=== PATIENT | male | born 1970 | race Hispanic/Latino ===

== ENCOUNTER 2016-12-30 10:55 | Emergency (ER) | payer OTHER ==
[~2016-12-30] VITALS: Ht 167.6 cm; Wt 69.6 kg
[~2016-12-30 10:55] MED LIST: CANNABIS OIL; NAPROSYN500 MG PO; PERI-COLACE TA1 EACH PO; SHARK FIN CART500 MG PO; TRANSFER FACTOR PO; VITAMIN D5000 UNI1 PO
[2016-12-30 14:59] VITALS: BP 135/68
== END 2016-12-30 15:03 | disposition home or self-care (01) ==
LOC: EME 10:55
DX: R07.89 Other chest pain (principal); R10.11 Right upper quadrant pain; V47.5XXA Car driver injured in collision with fixed or stationary object in traffic accident, initial encounter; Y92.411 Interstate highway as the place of occurrence of the external cause
CPT/HCPCS: 71101; 99281; 99284

== ENCOUNTER 2017-07-02 00:30 | Inpatient (IN) | payer OTHER ==
[~2017-07-02] VITALS: Ht 170.2 cm; Wt 64.7 kg
[2017-07-02 01:43] LABS: EOSINOPHIL (%) 1.9 % (0-5); EOSINOPHIL COUNT 0.1 K/uL (0-0.3); IMMATURE GRANULOCYTE (%) 0.1 % (0.0-0.7); INSTRUMENT ABS NEUTROPHIL CT 4.7 K/uL; MCH 28.6 PG (29.0-34.0); MCHC 32.4 G/DL (30.0-36.0); MCV 88.4 FL (86-99); MEAN PLAT.VOLUME 11.9 uM^3 (9.0-12.4); MONOCYTE (%) 5.1 % (3-12); MONOCYTE COUNT 0.4 K/uL (0-0.8); NEUTROPHIL (%) 65.4 % (45-76); NEUTROPHIL COUNT 4.7 K/uL (1.8-6.4); PLATELET COUNT 253 K/uL (156-360); RBC DIS.WIDTH-CV 12.3 % (11.8-14.6); RBC DIS.WIDTH-SD 40.1 % (39-53); RED BLOOD COUNT 4.75 M/uL (4.00-5.50); WHITE BLOOD COUNT 7.2 K/uL (4.1-10.2)
[2017-07-02 01:51] LABS: CHLORIDE 102 mEq/L (99-109); SODIUM 138 mEq/L (136-147)
[2017-07-02 01:53] LABS: GLUCOSE 110 mg/dL (70-99)
[2017-07-02 01:54] LABS: ANION GAP 11 MEQ/L (2-14)
[2017-07-02 01:55] LABS: TOTAL BILIRUBIN 0.3 mg/dL (0.0-1.0)
[2017-07-02 01:57] LABS: ALKALINE PHOSPHATASE 71 IU/L (3-129); GFR ESTIMATE (CALCULATED) > 59 mL/min/
[2017-07-02 01:58] LABS: UREA NITROGEN (BUN) 11 mg/dL (9-23)
[2017-07-02 02:01] LABS: POTASSIUM 3.7 mEq/L (3.7-5.4)
[2017-07-02 04:18] VITALS: BP 131/77
[2017-07-02 05:55] LABS: POINT-OF-CARE METER ID UU13113725
[2017-07-02 07:25] VITALS: BP 125/78
[2017-07-02 10:08] VITALS: BP 133/75
[2017-07-02] MEDS ORDERED: CANABIS OIL SL (13:49)
[2017-07-02] MEDS ORDERED: B-COMPLEX-VITA1 EACH PO (13:50)
[2017-07-02] MEDS ORDERED: TRANSFER FACTOR (13:50)
[2017-07-02 14:07] LABS: TROP-I INTERPRETATION NEGATIVE; TROPONIN-I < 0.01 ng/mL (0.0-0.30)
[2017-07-02 17:35] VITALS: BP 138/72
[2017-07-02 18:29] LABS: POINT-OF-CARE METER ID UU13113774
[2017-07-02 21:40] LABS: HEMATOCRIT 36.8 % (38.0-50.0); MCV 89.8 FL (86-99)
[2017-07-02 22:55] VITALS: BP 131/63
[2017-07-03 00:51] LABS: POINT-OF-CARE METER ID UU13113774
[2017-07-03 02:16] LABS: POINT-OF-CARE METER ID UU13113774
[2017-07-03 05:48] LABS: POINT-OF-CARE METER ID UU13113774
[2017-07-03 06:46] LABS: HEMATOCRIT 35.1 % (38.0-50.0); MCHC 31.9 G/DL (30.0-36.0); MCV 90.9 FL (86-99); MEAN PLAT.VOLUME 12.3 uM^3 (9.0-12.4); PLATELET COUNT 217 K/uL (156-360); RBC DIS.WIDTH-CV 12.4 % (11.8-14.6); RBC DIS.WIDTH-SD 41.3 % (39-53); RED BLOOD COUNT 3.86 M/uL (4.00-5.50); WHITE BLOOD COUNT 6.1 K/uL (4.1-10.2)
[2017-07-03 07:19] VITALS: BP 119/69
[2017-07-03 07:43] LABS: ALKALINE PHOSPHATASE 56 IU/L (3-129); ANION GAP 8 MEQ/L (2-14); CHLORIDE 101 MEQ/L (99-109); GFR ESTIMATE (CALCULATED) > 59 mL/min/; SAMPLE HEMOLYSIS CHECK 0; SAMPLE ICTERIC CHECK 0; SAMPLE LIPEMIA CHECK 0; SODIUM 139 MEQ/L (136-147); TOTAL BILIRUBIN 0.7 MG/DL (0.0-1.0); UREA NITROGEN (BUN) 10 mg/dL (9-23)
[2017-07-03 07:47] LABS: GLUCOSE 74 mg/dL (70-99)
[2017-07-03 07:52] LABS: POINT-OF-CARE METER ID UU13113774
[2017-07-03 10:03] LABS: MAGNESIUM 2.1 mg/dl (1.3-2.7)
[2017-07-03 10:58] VITALS: BP 122/71
[2017-07-03 12:17] LABS: POINT-OF-CARE METER ID UU13113774
[2017-07-03 16:19] VITALS: BP 112/62
[2017-07-03 19:37] LABS: POINT-OF-CARE METER ID UU13113725
[2017-07-03 23:15] VITALS: BP 109/60
[2017-07-04 05:45] LABS: POINT-OF-CARE METER ID UU13113774
[2017-07-04 06:40] VITALS: BP 105/70
[2017-07-04 06:50] LABS: HEMATOCRIT 34.6 % (38.0-50.0); MCH 29.2 PG (29.0-34.0); MCHC 32.4 G/DL (30.0-36.0); MCV 90.1 FL (86-99); PLATELET COUNT 214 K/uL (156-360); RBC DIS.WIDTH-CV 12.3 % (11.8-14.6); RBC DIS.WIDTH-SD 40.5 % (39-53); RED BLOOD COUNT 3.84 M/uL (4.00-5.50); WHITE BLOOD COUNT 4.3 K/uL (4.1-10.2)
[2017-07-04 07:17] LABS: ANION GAP 6 MEQ/L (2-14); CHLORIDE 102 MEQ/L (99-109); GFR ESTIMATE (CALCULATED) > 59 mL/min/; MAGNESIUM 2.1 mg/dl (1.3-2.7); POTASSIUM 3.7 MEQ/L (3.7-5.4); SAMPLE HEMOLYSIS CHECK 0; SAMPLE ICTERIC CHECK 0; SAMPLE LIPEMIA CHECK 0; SODIUM 139 MEQ/L (136-147); UREA NITROGEN (BUN) 6 mg/dL (9-23)
[2017-07-04 07:18] LABS: GLUCOSE 116 mg/dL (70-99)
[2017-07-04 11:08] VITALS: BP 108/71
[2017-07-04 11:24] LABS: POINT-OF-CARE METER ID UU13113725
[2017-07-04 15:15] VITALS: BP 103/69
[2017-07-04 16:29] LABS: POINT-OF-CARE METER ID UU13113725
[2017-07-04 19:56] VITALS: BP 130/65
[2017-07-04 21:46] LABS: POINT-OF-CARE METER ID UU13113725
[2017-07-04 22:57] VITALS: BP 125/62
[2017-07-05 05:58] LABS: POINT-OF-CARE METER ID UU13113774
[2017-07-05 07:30] VITALS: BP 105/67
[2017-07-05] MEDS ORDERED: ZOFRAN4 MG PO (11:01)
[2017-07-05 11:54] LABS: POINT-OF-CARE METER ID UU13113725
== END 2017-07-05 12:22 | disposition home or self-care (01) | DRG 389 ==
LOC: EME 00:30 → 5EAST 03:03 → EDOF 03:03 → ENRESERV 03:05 → 5EAST 04:21
PROVIDERS: Emergency Medicine; Hospitalist; Internal Medicine; Physician Assistant Medical
DX: K56.690 Other partial intestinal obstruction (principal); C78.6 Secondary malignant neoplasm of retroperitoneum and peritoneum; C77.2 Secondary and unspecified malignant neoplasm of intra-abdominal lymph nodes; C78.01 Secondary malignant neoplasm of right lung; G89.3 Neoplasm related pain (acute) (chronic); E86.0 Dehydration; Z85.038 Personal history of other malignant neoplasm of large intestine; Z90.49 Acquired absence of other specified parts of digestive tract
CPT/HCPCS: 36415; 71010; 74020; 74176; 80048; 80053; 82948; 83735; 84100; 84484; 85014; 85018; 85025; 85027; 86301 90; 86850; 86900; 86901; 93005; 99281; 99285; C9113; J1170; J1644; J1815; J2270; S0028

== ENCOUNTER 2017-07-22 20:59 | Emergency (ER) | payer OTHER ==
[~2017-07-22] VITALS: Ht 170.2 cm; Wt 63.9 kg
[~2017-07-22 20:59] MED LIST changes: +B-COMPLEX-VITA1 EACH PO; +CANABIS OIL SL; +TRANSFER FACTOR; +ZOFRAN4 MG PO
[2017-07-22 21:24] LABS: HEMATOCRIT 39.3 % (38.0-50.0); MCH 28.3 PG (29.0-34.0); MCHC 32.8 G/DL (30.0-36.0); MCV 86.2 FL (86-99); RBC DIS.WIDTH-CV 12.2 % (11.8-14.6); RBC DIS.WIDTH-SD 38.5 % (39-53); RED BLOOD COUNT 4.56 M/uL (4.00-5.50); WHITE BLOOD COUNT 7.9 K/uL (4.1-10.2)
[2017-07-22 21:32] LABS: CHLORIDE 99 mEq/L (99-109); POTASSIUM 4.3 mEq/L (3.7-5.4); SODIUM 140 mEq/L (136-147)
[2017-07-22 21:34] LABS: GLUCOSE 110 mg/dL (70-99)
[2017-07-22 21:35] LABS: ANION GAP 13 MEQ/L (2-14)
[2017-07-22 21:36] LABS: TOTAL BILIRUBIN 0.3 mg/dL (0.0-1.0)
[2017-07-22 21:37] LABS: ALKALINE PHOSPHATASE 67 IU/L (3-129)
[2017-07-22 21:38] LABS: GFR ESTIMATE (CALCULATED) > 59 mL/min/
[2017-07-22 21:39] LABS: UREA NITROGEN (BUN) 9 mg/dL (9-23)
[2017-07-22 21:41] LABS: LIPASE 12 U/L (1.0-51.0)
[2017-07-22 22:45] LABS: MEAN PLAT.VOLUME 12.2 uM^3 (9.0-12.4); PLAT.SUFFICIENCY ADEQUATE; PLATELET COUNT 255 K/uL (156-360)
[2017-07-22 23:06] LABS: ADD MIUA? NO; BILIRUBIN NEGATIVE; BLOOD NEGATIVE; COLOR STRAW ((YELLOW)); GLUCOSE (STRIP) NEGATIVE; KETONES 20; LEUKOCYTES NEGATIVE; NITRITE NEGATIVE; PROTEIN (STRIP) NEGATIVE; UCUL ADDED? NO; UROBILINOGEN 0.2 MG/DL (0.2-1.0)
[2017-07-23] MEDS ORDERED: ZOFRAN4 MG PO (01:14)
[2017-07-23] MEDS ORDERED: ROXICODONE5 MG PO (01:14)
[2017-07-23 01:42] VITALS: BP 109/71
[2017-07-23] MEDS ORDERED: [UNRECOGNIZED DRUG - OTHER] PO (23:36)
[2017-07-23] MEDS ORDERED: [UNRECOGNIZED DRUG - OTHER] PO (23:38)
[2017-07-23] MEDS ORDERED: VITAMIN D2000 UNI1 PO (23:39)
[2017-07-23] MEDS ORDERED: ENZYME DIGEST1 EACH PO (23:40)
[2017-07-27] MEDS ORDERED: POLYETHYLENE GL17 GM PO (12:26)
[2017-07-27] MEDS ORDERED: SENNA PLUS TAB1 EACH PO (12:26)
== END 2017-07-23 01:48 | disposition home or self-care (01) ==
LOC: EME 20:59
DX: N13.30 Unspecified hydronephrosis (principal); R10.9 Unspecified abdominal pain; Z51.5 Encounter for palliative care; C18.1 Malignant neoplasm of appendix; C77.2 Secondary and unspecified malignant neoplasm of intra-abdominal lymph nodes
CPT/HCPCS: 74176; 80053; 81003; 83690; 85027; 99281; 99285; J1170; J2405; J7050

== ENCOUNTER 2017-08-12 20:46 | Inpatient (IN) | payer OTHER ==
[~2017-08-12] VITALS: Ht 170.2 cm; Wt 61.8 kg
[~2017-08-12 20:46] MED LIST changes: +ENZYME DIGEST1 EACH PO; +POLYETHYLENE GL17 GM PO; +ROXICODONE5 MG PO; +SENNA PLUS TAB1 EACH PO; +VITAMIN D2000 UNI1 PO; +[UNRECOGNIZED DRUG - OTHER] PO; +[UNRECOGNIZED DRUG - OTHER] PO
[2017-08-12 21:47] LABS: HEMATOCRIT 40.2 % (38.0-50.0); MCH 27.2 PG (29.0-34.0); MCHC 32.6 G/DL (30.0-36.0); MCV 83.6 FL (86-99); RBC DIS.WIDTH-CV 12.8 % (11.8-14.6); RBC DIS.WIDTH-SD 39.6 % (39-53); WHITE BLOOD COUNT 6.7 K/uL (4.1-10.2)
[2017-08-12 21:49] LABS: CHLORIDE 98 mEq/L (99-109); POTASSIUM 4.4 mEq/L (3.7-5.4); SODIUM 140 mEq/L (136-147)
[2017-08-12 21:51] LABS: GLUCOSE 122 mg/dL (70-99)
[2017-08-12 21:52] LABS: ANION GAP 12 MEQ/L (2-14)
[2017-08-12 21:53] LABS: TOTAL BILIRUBIN 0.5 mg/dL (0.0-1.0)
[2017-08-12 21:55] LABS: ALKALINE PHOSPHATASE 64 IU/L (3-129); GFR ESTIMATE (CALCULATED) > 59 mL/min/
[2017-08-12 21:56] LABS: UREA NITROGEN (BUN) 7 mg/dL (9-23)
[2017-08-12 21:58] LABS: LIPASE 23 U/L (1.0-51.0)
[2017-08-12 22:19] LABS: MEAN PLAT.VOLUME 11.9 uM^3 (9.0-12.4); PLAT.SUFFICIENCY ADEQUATE; PLATELET COUNT 337 K/uL (156-360)
[2017-08-12 22:23] LABS: RED BLOOD COUNT 4.81 M/uL (4.00-5.50)
[2017-08-12 22:44] LABS: ADD MIUA? YES; BILIRUBIN NEGATIVE; BLOOD MODERATE; COLOR STRAW ((YELLOW)); GLUCOSE (STRIP) NEGATIVE; KETONES 20; LEUKOCYTES TRACE; NITRITE NEGATIVE; PROTEIN (STRIP) NEGATIVE; SPECIFIC GRAVITY 1.005 (1.000-1.030); UROBILINOGEN 0.2 MG/DL (0.2-1.0)
[2017-08-12 22:55] LABS: BACTERIA NONE SEEN /HPF; EPITHELIAL CELLS NONE SEEN /HPF; MUCUS TRACE /LPF; RED BLOOD CELLS 0-5 /HPF (0-5); WHITE BLOOD CELLS 0-5 /HPF (0-5)
[2017-08-12] MEDS ORDERED: PRILOSEC OTC20 MG PO (23:07)
[2017-08-13] VITALS (7 sets, daily range): BP systolic 119–134; BP diastolic 68–80
[2017-08-13 06:49] LABS: HEMATOCRIT 34.8 % (38.0-50.0); MCH 26.4 PG (29.0-34.0); MCHC 31.3 G/DL (30.0-36.0); MCV 84.3 FL (86-99); RBC DIS.WIDTH-SD 39.9 % (39-53); RED BLOOD COUNT 4.13 M/uL (4.00-5.50); WHITE BLOOD COUNT 4.7 K/uL (4.1-10.2)
[2017-08-13 07:09] LABS: ALKALINE PHOSPHATASE 49 IU/L (3-129); ANION GAP 10 MEQ/L (2-14); CHLORIDE 102 MEQ/L (99-109); GFR ESTIMATE (CALCULATED) > 59 mL/min/; GLUCOSE 104 mg/dL (70-99); POTASSIUM 4.4 MEQ/L (3.7-5.4); SAMPLE HEMOLYSIS CHECK 0; SAMPLE ICTERIC CHECK 0; SAMPLE LIPEMIA CHECK 0; SODIUM 138 MEQ/L (136-147); TOTAL BILIRUBIN 0.4 MG/DL (0.0-1.0); UREA NITROGEN (BUN) 7 mg/dL (9-23)
[2017-08-13 07:48] LABS: MEAN PLAT.VOLUME 11.6 uM^3 (9.0-12.4); PLAT.SUFFICIENCY ADEQUATE; PLATELET COUNT 271 K/uL (156-360)
[2017-08-14 04:07] VITALS: BP 112/62
[2017-08-14 09:15] VITALS: BP 123/68
[2017-08-14] MEDS ORDERED: TAMSULOSIN HCL0.4 MG PO (13:42)
[2017-08-14] MEDS ORDERED: MOTRIN600 MG PO (13:43)
[2017-08-14] MEDS ORDERED: SENNA PLUS TAB1 EACH PO (13:43)
== END 2017-08-14 15:35 | disposition home or self-care (01) | DRG 389 ==
LOC: EME 20:46 → EDOF 08-13 00:01 → 2EAST 08-13 00:01 → ENRESERV 08-13 00:05 → 2EAST 08-13 01:30
PROVIDERS: Internal Medicine; Nurse Practitioner Family
DX: K56.600 Partial intestinal obstruction, unspecified as to cause (principal); C78.6 Secondary malignant neoplasm of retroperitoneum and peritoneum; C79.11 Secondary malignant neoplasm of bladder; C77.2 Secondary and unspecified malignant neoplasm of intra-abdominal lymph nodes; N13.1 Hydronephrosis with ureteral stricture, not elsewhere classified; G89.3 Neoplasm related pain (acute) (chronic); T83.84XA Pain due to genitourinary prosthetic devices, implants and grafts, initial encounter; Y73.2 Prosthetic and other implants, materials and accessory gastroenterology and urology devices associated with adverse incidents; K25.9 Gastric ulcer, unspecified as acute or chronic, without hemorrhage or perforation; B96.81 Helicobacter pylori [H. pylori] as the cause of diseases classified elsewhere; K21.9 Gastro-esophageal reflux disease without esophagitis; Z85.038 Personal history of other malignant neoplasm of large intestine; Z90.49 Acquired absence of other specified parts of digestive tract
CPT/HCPCS: 74000; 74176; 80053; 81003; 83690; 85027; 99281; 99285; J1170; J1644; J1650; J1885; J2405; J3010; J7030; S0028

== ENCOUNTER → 2017-08-23 | Emergency (ER) | payer OTHER ==
[~2017-08-23] VITALS: Ht 170.2 cm; Wt 58.6 kg
[~2017-08-23] MED LIST changes: +CASTOR OIL PO; +COLACE100 MG PO; +MOTRIN600 MG PO; +PRILOSEC OTC20 MG PO; +TAMSULOSIN HCL0.4 MG PO
[2017-08-23 14:13] LABS: HEMATOCRIT 42.3 % (38.0-50.0); MCH 26.1 PG (29.0-34.0); MCHC 32.4 G/DL (30.0-36.0); MCV 80.7 FL (86-99); RBC DIS.WIDTH-CV 13.2 % (11.8-14.6); RBC DIS.WIDTH-SD 38.4 % (39-53); WHITE BLOOD COUNT 9.4 K/uL (4.1-10.2)
[2017-08-23 14:23] LABS: CHLORIDE 92 mEq/L (99-109); POTASSIUM 3.6 mEq/L (3.7-5.4); SODIUM 136 mEq/L (136-147)
[2017-08-23 14:25] LABS: GLUCOSE 110 mg/dL (70-99)
[2017-08-23 14:26] LABS: ANION GAP 15 MEQ/L (2-14)
[2017-08-23 14:27] LABS: TOTAL BILIRUBIN 0.6 mg/dL (0.0-1.0)
[2017-08-23 14:28] LABS: ALKALINE PHOSPHATASE 72 IU/L (3-129)
[2017-08-23 14:29] LABS: GFR ESTIMATE (CALCULATED) > 59 mL/min/
[2017-08-23 14:30] LABS: UREA NITROGEN (BUN) 10 mg/dL (9-23)
[2017-08-23 14:32] LABS: LIPASE 18 U/L (1.0-51.0)
[2017-08-23 14:47] LABS: RED BLOOD COUNT 5.24 M/uL (4.00-5.50)
[2017-08-23 15:06] LABS: MEAN PLAT.VOLUME 11.7 uM^3 (9.0-12.4); PLAT.SUFFICIENCY ADEQUATE; PLATELET COUNT 337 K/uL (156-360)
[2017-08-23 17:12] LABS: ADD MIUA? YES; BILIRUBIN NEGATIVE; BLOOD MODERATE; COLOR YELLOW ((YELLOW)); GLUCOSE (STRIP) NEGATIVE; KETONES 80; LEUKOCYTES TRACE; NITRITE NEGATIVE; PROTEIN (STRIP) 30; UROBILINOGEN 0.2 MG/DL (0.2-1.0)
[2017-08-23 17:19] LABS: BACTERIA NONE SEEN /HPF; EPITHELIAL CELLS RARE /HPF; HYALINE CASTS 0-5 /LPF; MUCUS 1+ /LPF; RED BLOOD CELLS 30-40 /HPF (0-5); UCUL ADDED? YES; WHITE BLOOD CELLS CLUMP RARE /HPF (0-5)
[2017-08-23 20:04] VITALS: BP 126/79
== END | disposition home or self-care (01) ==
LOC: EME 13:25
DX: R10.9 Unspecified abdominal pain (principal); R11.2 Nausea with vomiting, unspecified; R53.1 Weakness; E86.0 Dehydration; C76.2 Malignant neoplasm of abdomen
CPT/HCPCS: 80053; 81003; 83690; 85027; 87086; 99281; 99284; J2405; J3010; J7030

== ENCOUNTER 2017-08-24 13:34 | Emergency (ER) | payer OTHER ==
[~2017-08-24] VITALS: Ht 170.2 cm; Wt 58.5 kg
[~2017-08-24 13:34] MED LIST changes: -CASTOR OIL PO; -COLACE100 MG PO
[2017-08-24 14:42] LABS: HEMATOCRIT 36.6 % (38.0-50.0); MCH 26.2 PG (29.0-34.0); MCHC 32.2 G/DL (30.0-36.0); MCV 81.3 FL (86-99); RBC DIS.WIDTH-CV 13.2 % (11.8-14.6); RBC DIS.WIDTH-SD 39.1 % (39-53)
[2017-08-24 14:50] LABS: CHLORIDE 93 mEq/L (99-109); SODIUM 134 mEq/L (136-147)
[2017-08-24 14:53] LABS: GLUCOSE 105 mg/dL (70-99)
[2017-08-24 14:54] LABS: ANION GAP 12 MEQ/L (2-14)
[2017-08-24 14:55] LABS: TOTAL BILIRUBIN 0.6 mg/dL (0.0-1.0)
[2017-08-24 14:56] LABS: ALKALINE PHOSPHATASE 63 IU/L (3-129); GFR ESTIMATE (CALCULATED) > 59 mL/min/
[2017-08-24 14:57] LABS: UREA NITROGEN (BUN) 10 mg/dL (9-23)
[2017-08-24 15:00] LABS: LIPASE 7 U/L (1.0-51.0)
[2017-08-24 15:39] LABS: MEAN PLAT.VOLUME 11.7 uM^3 (9.0-12.4); PLAT.SUFFICIENCY ADEQUATE; PLATELET COUNT 289 K/uL (156-360)
[2017-08-24 17:15] LABS: ADD MIUA? YES; BILIRUBIN NEGATIVE; BLOOD MODERATE; COLOR YELLOW ((YELLOW)); GLUCOSE (STRIP) NEGATIVE; KETONES 80; LEUKOCYTES NEGATIVE; NITRITE NEGATIVE; PROTEIN (STRIP) 100; SPECIFIC GRAVITY 1.016 (1.000-1.030); UROBILINOGEN 0.2 MG/DL (0.2-1.0)
[2017-08-24 17:22] LABS: BACTERIA RARE /HPF; EPITHELIAL CELLS NONE SEEN /HPF; HYALINE CASTS 0-5 /LPF; MUCUS 1+ /LPF; RED BLOOD CELLS TNTC /HPF (0-5); UCUL ADDED? YES; WHITE BLOOD CELLS 0-5 /HPF (0-5)
[2017-08-25 00:08] VITALS: BP 116/81
== END 2017-08-25 00:09 | disposition short-term general hospital (02) ==
LOC: EME → EDBD 13:34 → EME 08-25 00:09
PROVIDERS: Emergency Medicine
DX: K56.600 Partial intestinal obstruction, unspecified as to cause (principal); R11.2 Nausea with vomiting, unspecified; C79.11 Secondary malignant neoplasm of bladder; G89.3 Neoplasm related pain (acute) (chronic); Z85.038 Personal history of other malignant neoplasm of large intestine; K21.9 Gastro-esophageal reflux disease without esophagitis; Z92.21 Personal history of antineoplastic chemotherapy; Z90.49 Acquired absence of other specified parts of digestive tract
CPT/HCPCS: 74177; 80053; 81003; 83690; 85027; 87086; 99281; 99285; J2405; J3010; J7030

== ENCOUNTER 2017-08-29 18:33 | Inpatient (IN) | payer OTHER ==
[~2017-08-29] VITALS: Ht 170.2 cm; Wt 56.6 kg
[2017-08-29 19:12] LABS: EOSINOPHIL (%) 0.5 % (0-5); HEMATOCRIT 39.6 % (38.0-50.0); IMMATURE GRANULOCYTE (%) 0.5 % (0.0-0.7); INSTRUMENT ABS NEUTROPHIL CT 6.4 K/uL; LYMPHOCYTE COUNT 1.2 K/uL (1.0-2.8); MCH 25.2 PG (29.0-34.0); MCHC 31.6 G/DL (30.0-36.0); MCV 79.8 FL (86-99); MEAN PLAT.VOLUME 11.8 uM^3 (9.0-12.4); MONOCYTE (%) 5.3 % (3-12); MONOCYTE COUNT 0.4 K/uL (0-0.8); NEUTROPHIL COUNT 6.4 K/uL (1.8-6.4); PLATELET COUNT 356 K/uL (156-360); RBC DIS.WIDTH-CV 13.2 % (11.8-14.6); RBC DIS.WIDTH-SD 37.3 % (39-53); RED BLOOD COUNT 4.96 M/uL (4.00-5.50); WHITE BLOOD COUNT 8.1 K/uL (4.1-10.2)
[2017-08-29 19:24] LABS: CHLORIDE 97 mEq/L (99-109); POTASSIUM 3.2 mEq/L (3.7-5.4); SODIUM 138 mEq/L (136-147)
[2017-08-29 19:26] LABS: GLUCOSE 120 mg/dL (70-99)
[2017-08-29 19:27] LABS: ANION GAP 14 MEQ/L (2-14)
[2017-08-29 19:28] LABS: TOTAL BILIRUBIN 0.5 mg/dL (0.0-1.0)
[2017-08-29 19:29] LABS: ALKALINE PHOSPHATASE 69 IU/L (3-129)
[2017-08-29 19:30] LABS: GFR ESTIMATE (CALCULATED) > 59 mL/min/
[2017-08-29 19:31] LABS: UREA NITROGEN (BUN) 10 mg/dL (9-23)
[2017-08-29 19:33] LABS: LIPASE 58 U/L (1.0-51.0)
[2017-08-29] MEDS ORDERED: COLACE100 MG PO (21:53)
[2017-08-29] MEDS ORDERED: CASTOR OIL PO (21:54)
[2017-08-29 23:36] LABS: ADD MIUA? YES; BILIRUBIN NEGATIVE; BLOOD MODERATE; COLOR STRAW ((YELLOW)); GLUCOSE (STRIP) NEGATIVE; KETONES 20; LEUKOCYTES NEGATIVE; NITRITE NEGATIVE; PROTEIN (STRIP) NEGATIVE; SPECIFIC GRAVITY 1.004 (1.000-1.030); UROBILINOGEN 0.2 MG/DL (0.2-1.0)
[2017-08-29 23:52] LABS: BACTERIA NONE SEEN /HPF; EPITHELIAL CELLS NONE SEEN /HPF; MUCUS NONE SEEN /LPF; RED BLOOD CELLS 0-5 /HPF (0-5); UCUL ADDED? NO; WHITE BLOOD CELLS 0-5 /HPF (0-5)
[2017-08-30 01:03] VITALS: BP 136/85
[2017-08-30 06:33] LABS: ANION GAP 10 MEQ/L (2-14); CHLORIDE 100 MEQ/L (99-109); GFR ESTIMATE (CALCULATED) > 59 mL/min/; GLUCOSE 93 mg/dL (70-99); POTASSIUM 4.3 MEQ/L (3.7-5.4); SAMPLE HEMOLYSIS CHECK 0; SAMPLE ICTERIC CHECK 0; SAMPLE LIPEMIA CHECK 0; SODIUM 139 MEQ/L (136-147); UREA NITROGEN (BUN) 9 mg/dL (9-23)
[2017-08-30 07:05] VITALS: BP 121/78
[2017-08-30 07:27] LABS: EOSINOPHIL (%) 1.2 % (0-5); EOSINOPHIL COUNT 0.1 K/uL (0-0.3); HEMATOCRIT 37.9 % (38.0-50.0); IMMATURE GRANULOCYTE (%) 0.6 % (0.0-0.7); INSTRUMENT ABS NEUTROPHIL CT 3.9 K/uL; LYMPHOCYTE COUNT 1.9 K/uL (1.0-2.8); MCH 25.6 PG (29.0-34.0); MCHC 31.7 G/DL (30.0-36.0); MEAN PLAT.VOLUME 11.4 uM^3 (9.0-12.4); MONOCYTE (%) 8.7 % (3-12); MONOCYTE COUNT 0.6 K/uL (0-0.8); NEUTROPHIL (%) 60.2 % (45-76); NEUTROPHIL COUNT 3.9 K/uL (1.8-6.4); PLATELET COUNT 334 K/uL (156-360); RBC DIS.WIDTH-CV 13.4 % (11.8-14.6); RBC DIS.WIDTH-SD 39.5 % (39-53); RED BLOOD COUNT 4.68 M/uL (4.00-5.50); WHITE BLOOD COUNT 6.4 K/uL (4.1-10.2)
[2017-08-30 09:48] LABS: MAGNESIUM 1.8 mg/dl (1.3-2.7); PREALBUMIN 13.9 mg/dL (10-40); TRIGLYCERIDES 108 MG/DL (Normal: <150)
[2017-08-30 16:46] VITALS: BP 122/76
[2017-08-31 00:20] VITALS: BP 121/71
[2017-08-31 04:58] VITALS: BP 129/75; BP 153/67
[2017-08-31 06:08] LABS: EOSINOPHIL (%) 4.8 % (0-5); EOSINOPHIL COUNT 0.3 K/uL (0-0.3); HEMATOCRIT 33.1 % (38.0-50.0); IMMATURE GRANULOCYTE (%) 0.4 % (0.0-0.7); LYMPHOCYTE COUNT 1.6 K/uL (1.0-2.8); MCH 26.1 PG (29.0-34.0); MCHC 31.7 G/DL (30.0-36.0); MCV 82.3 FL (86-99); MEAN PLAT.VOLUME 11.8 uM^3 (9.0-12.4); MONOCYTE (%) 7.1 % (3-12); MONOCYTE COUNT 0.4 K/uL (0-0.8); NEUTROPHIL (%) 56.7 % (45-76); PLATELET COUNT 300 K/uL (156-360); RBC DIS.WIDTH-CV 13.4 % (11.8-14.6); RBC DIS.WIDTH-SD 40.3 % (39-53); RED BLOOD COUNT 4.02 M/uL (4.00-5.50); WHITE BLOOD COUNT 5.2 K/uL (4.1-10.2)
[2017-08-31 06:42] LABS: ALKALINE PHOSPHATASE 50 IU/L (3-129); ANION GAP 9 MEQ/L (2-14); CHLORIDE 101 MEQ/L (99-109); DIRECT BILIRUBIN 0.1 mg/dL (0.0-0.3); GFR ESTIMATE (CALCULATED) > 59 mL/min/; GLUCOSE 72 mg/dL (70-99); MAGNESIUM 1.8 mg/dl (1.3-2.7); POTASSIUM 4.4 MEQ/L (3.7-5.4); SAMPLE HEMOLYSIS CHECK 0; SAMPLE ICTERIC CHECK 0; SAMPLE LIPEMIA CHECK 0; SODIUM 138 MEQ/L (136-147); TOTAL BILIRUBIN 0.5 MG/DL (0.0-1.0); TRIGLYCERIDES 109 MG/DL (Normal: <150); UREA NITROGEN (BUN) 9 mg/dL (9-23)
[2017-08-31 11:00] VITALS: BP 120/70
[2017-08-31 15:43] VITALS: BP 118/65
[2017-08-31 19:41] VITALS: BP 116/66
[2017-08-31 23:10] VITALS: BP 129/75
[2017-09-01 03:14] VITALS: BP 107/65
[2017-09-01 05:32] LABS: HEMATOCRIT 31.8 % (38.0-50.0); MCH 25.3 PG (29.0-34.0); MCHC 31.8 G/DL (30.0-36.0); MCV 79.5 FL (86-99); RBC DIS.WIDTH-CV 13.2 % (11.8-14.6); RBC DIS.WIDTH-SD 38.2 % (39-53); WHITE BLOOD COUNT 4.3 K/uL (4.1-10.2)
[2017-09-01 05:59] LABS: ANION GAP 4 MEQ/L (2-14); CHLORIDE 102 MEQ/L (99-109); GFR ESTIMATE (CALCULATED) > 59 mL/min/; POTASSIUM 3.7 MEQ/L (3.7-5.4); SAMPLE HEMOLYSIS CHECK 0; SAMPLE ICTERIC CHECK 0; SAMPLE LIPEMIA CHECK 0; SODIUM 137 MEQ/L (136-147); UREA NITROGEN (BUN) 10 mg/dL (9-23)
[2017-09-01 06:03] LABS: GLUCOSE 128 mg/dL (70-99); MAGNESIUM 2.3 mg/dl (1.3-2.7)
[2017-09-01 06:06] LABS: MEAN PLAT.VOLUME 11.1 uM^3 (9.0-12.4); PLAT.SUFFICIENCY ADEQUATE; PLATELET COUNT 305 K/uL (156-360)
[2017-09-01 06:50] VITALS: BP 111/72
[2017-09-01 11:00] VITALS: BP 114/74
[2017-09-01 15:00] VITALS: BP 112/73
[2017-09-01 20:00] VITALS: BP 117/69
[2017-09-02] VITALS (7 sets, daily range): BP systolic 102–131; BP diastolic 58–87
[2017-09-02 06:48] LABS: ANION GAP 7 MEQ/L (2-14); CHLORIDE 105 MEQ/L (99-109); GFR ESTIMATE (CALCULATED) > 59 mL/min/; GLUCOSE 125 mg/dL (70-99); MAGNESIUM 2.5 mg/dl (1.3-2.7); SAMPLE HEMOLYSIS CHECK 0; SAMPLE ICTERIC CHECK 0; SAMPLE LIPEMIA CHECK 0; SODIUM 140 MEQ/L (136-147); UREA NITROGEN (BUN) 14 mg/dL (9-23)
[2017-09-02 06:50] LABS: POTASSIUM 4.6 MEQ/L (3.7-5.4)
[2017-09-03 04:11] VITALS: BP 93/60
[2017-09-03 06:11] LABS: HEMATOCRIT 32.7 % (38.0-50.0); MCH 25.3 PG (29.0-34.0); MCHC 31.2 G/DL (30.0-36.0); MCV 81.1 FL (86-99); RBC DIS.WIDTH-CV 13.7 % (11.8-14.6); RBC DIS.WIDTH-SD 40.1 % (39-53); RED BLOOD COUNT 4.03 M/uL (4.00-5.50); WHITE BLOOD COUNT 4.8 K/uL (4.1-10.2)
[2017-09-03 06:30] LABS: CHLORIDE 110 MEQ/L (99-109); POTASSIUM 4.8 MEQ/L (3.7-5.4); SODIUM 141 MEQ/L (136-147)
[2017-09-03 06:50] LABS: MEAN PLAT.VOLUME 11.9 uM^3 (9.0-12.4); PLAT.SUFFICIENCY ADEQUATE; PLATELET COUNT 286 K/uL (156-360)
[2017-09-03 07:44] VITALS: BP 110/57
[2017-09-03 07:57] LABS: ANION GAP 8 MEQ/L (2-14); GFR ESTIMATE (CALCULATED) > 59 mL/min/; GLUCOSE 109 mg/dL (70-99); MAGNESIUM 2.3 mg/dl (1.3-2.7); SAMPLE HEMOLYSIS CHECK 1; SAMPLE ICTERIC CHECK 0; SAMPLE LIPEMIA CHECK 0; UREA NITROGEN (BUN) 18 mg/dL (9-23)
[2017-09-03 13:03] VITALS: BP 107/63
[2017-09-03 15:18] VITALS: BP 119/65
[2017-09-03 19:31] VITALS: BP 119/65
[2017-09-03 23:28] VITALS: BP 122/75
[2017-09-04 04:35] VITALS: BP 122/65
[2017-09-04 06:09] LABS: HEMATOCRIT 36.5 % (38.0-50.0); MCH 25.9 PG (29.0-34.0); MCHC 31.8 G/DL (30.0-36.0); MCV 81.5 FL (86-99); PLATELET COUNT 302 K/uL (156-360); RBC DIS.WIDTH-CV 14.1 % (11.8-14.6); RBC DIS.WIDTH-SD 40.9 % (39-53); RED BLOOD COUNT 4.48 M/uL (4.00-5.50)
[2017-09-04 06:43] LABS: ABS NEUTROPHIL COUNT 4.4; ANISOCYTOSIS 1+; ATYPICAL LYMPHOCYTE 10.5 %; BAND NEUTROPHILS 1.8 % (0-8.0); EOSINOPHIL ABS CT 0.2; EOSINOPHILS 3.5 % (0-5.0); INSTRUMENT ABS NEUTROPHIL CT 3.9 K/uL; LYMPHOCYTES 12.3 % (15.0-45.0); PLAT.SUFFICIENCY ADEQUATE; SEG.NEUTROPHILS 71.9 % (46.0-76.0)
[2017-09-04 06:46] LABS: ANION GAP 8 MEQ/L (2-14); CHLORIDE 105 MEQ/L (99-109); DIRECT BILIRUBIN 0.2 mg/dL (0.0-0.3); GFR ESTIMATE (CALCULATED) > 59 mL/min/; GLUCOSE 130 mg/dL (70-99); MAGNESIUM 2.1 mg/dl (1.3-2.7); POTASSIUM 4.5 MEQ/L (3.7-5.4); SAMPLE HEMOLYSIS CHECK 0; SAMPLE ICTERIC CHECK 0; SAMPLE LIPEMIA CHECK 0; SODIUM 140 MEQ/L (136-147); TOTAL BILIRUBIN 0.5 MG/DL (0.0-1.0); TRIGLYCERIDES 155 MG/DL (Normal: <150); UREA NITROGEN (BUN) 20 mg/dL (9-23)
[2017-09-04 06:47] LABS: ALKALINE PHOSPHATASE 89 IU/L (3-129)
[2017-09-04 08:14] VITALS: BP 119/79
[2017-09-04 11:39] VITALS: BP 120/72
[2017-09-04 18:04] VITALS: BP 122/80
[2017-09-04 20:52] VITALS: BP 112/62
[2017-09-05 00:16] VITALS: BP 124/77
[2017-09-05 06:23] LABS: ANION GAP 10 MEQ/L (2-14); CHLORIDE 105 MEQ/L (99-109); GFR ESTIMATE (CALCULATED) > 59 mL/min/; GLUCOSE 129 mg/dL (70-99); POTASSIUM 4.2 MEQ/L (3.7-5.4); SAMPLE HEMOLYSIS CHECK 0; SAMPLE ICTERIC CHECK 0; SAMPLE LIPEMIA CHECK 0; SODIUM 139 MEQ/L (136-147); UREA NITROGEN (BUN) 16 mg/dL (9-23)
[2017-09-05 07:40] VITALS: BP 117/73
[2017-09-05 11:21] VITALS: BP 135/80
[2017-09-05 13:50] LABS: URINE UREA NITROGEN 11708 MG/24 HR
[2017-09-05 15:25] VITALS: BP 111/74
[2017-09-05 20:05] VITALS: BP 121/77
[2017-09-05 23:46] VITALS: BP 118/73
[2017-09-06 04:00] VITALS: BP 117/64
[2017-09-06 06:27] LABS: ANION GAP 9 MEQ/L (2-14); CHLORIDE 105 MEQ/L (99-109); GFR ESTIMATE (CALCULATED) > 59 mL/min/; GLUCOSE 160 mg/dL (70-99); POTASSIUM 4.1 MEQ/L (3.7-5.4); SAMPLE HEMOLYSIS CHECK 0; SAMPLE ICTERIC CHECK 0; SAMPLE LIPEMIA CHECK 1; SODIUM 139 MEQ/L (136-147); UREA NITROGEN (BUN) 21 mg/dL (9-23)
[2017-09-06 07:40] VITALS: BP 129/74
[2017-09-06 07:42] LABS: HEMATOCRIT 31.3 % (38.0-50.0); MCH 25.6 PG (29.0-34.0); MCHC 31.6 G/DL (30.0-36.0); MCV 81.1 FL (86-99); RBC DIS.WIDTH-CV 14.4 % (11.8-14.6); RED BLOOD COUNT 3.86 M/uL (4.00-5.50); WHITE BLOOD COUNT 8.4 K/uL (4.1-10.2)
[2017-09-06 08:34] LABS: MEAN PLAT.VOLUME 13.1 uM^3 (9.0-12.4); PLAT.SUFFICIENCY ADEQUATE; PLATELET COUNT 264 K/uL (156-360)
[2017-09-06 09:23] LABS: ALKALINE PHOSPHATASE 92 IU/L (3-129); DIRECT BILIRUBIN 0.2 mg/dL (0.0-0.3); TOTAL BILIRUBIN 0.4 MG/DL (0.0-1.0)
[2017-09-06 11:38] VITALS: BP 122/73
[2017-09-06 17:04] VITALS: BP 122/80
[2017-09-06 19:08] VITALS: BP 112/72
[2017-09-06 22:56] VITALS: BP 101/61
[2017-09-07 03:23] VITALS: BP 101/57
[2017-09-07 06:42] LABS: ANION GAP 9 MEQ/L (2-14); CHLORIDE 108 MEQ/L (99-109); GFR ESTIMATE (CALCULATED) > 59 mL/min/; GLUCOSE 193 mg/dL (70-99); MAGNESIUM 2.1 mg/dl (1.3-2.7); POTASSIUM 3.9 MEQ/L (3.7-5.4); SAMPLE HEMOLYSIS CHECK 0; SAMPLE ICTERIC CHECK 0; SAMPLE LIPEMIA CHECK 0; SODIUM 141 MEQ/L (136-147); UREA NITROGEN (BUN) 23 mg/dL (9-23)
[2017-09-07 07:39] LABS: HEMATOCRIT 28.8 % (38.0-50.0); MCH 25.7 PG (29.0-34.0); MCHC 31.6 G/DL (30.0-36.0); MCV 81.4 FL (86-99); RBC DIS.WIDTH-CV 14.3 % (11.8-14.6); RBC DIS.WIDTH-SD 41.7 % (39-53); RED BLOOD COUNT 3.54 M/uL (4.00-5.50)
[2017-09-07 07:44] VITALS: BP 101/57
[2017-09-07 08:04] LABS: MEAN PLAT.VOLUME 12.7 uM^3 (9.0-12.4); PLAT.SUFFICIENCY ADEQUATE; PLATELET COUNT 211 K/uL (156-360)
[2017-09-07 12:32] VITALS: BP 98/56
[2017-09-07 15:36] VITALS: BP 108/64
[2017-09-07 20:16] VITALS: BP 108/70
[2017-09-08 00:26] VITALS: BP 119/67
[2017-09-08 04:45] VITALS: BP 131/73
[2017-09-08 06:07] LABS: EOSINOPHIL COUNT 0.2 K/uL (0-0.3); HEMATOCRIT 29.3 % (38.0-50.0); IMMATURE GRANULOCYTE (%) 0.6 % (0.0-0.7); INSTRUMENT ABS NEUTROPHIL CT 4.9 K/uL; LYMPHOCYTE COUNT 1.8 K/uL (1.0-2.8); MCH 25.3 PG (29.0-34.0); MCHC 31.7 G/DL (30.0-36.0); MCV 79.8 FL (86-99); MEAN PLAT.VOLUME 11.8 uM^3 (9.0-12.4); MONOCYTE COUNT 0.1 K/uL (0-0.8); NEUTROPHIL (%) 69.3 % (45-76); NEUTROPHIL COUNT 4.9 K/uL (1.8-6.4); PLATELET COUNT 216 K/uL (156-360); RBC DIS.WIDTH-CV 14.3 % (11.8-14.6); RBC DIS.WIDTH-SD 41.9 % (39-53); RED BLOOD COUNT 3.67 M/uL (4.00-5.50); WHITE BLOOD COUNT 7.1 K/uL (4.1-10.2)
[2017-09-08 06:35] LABS: ANION GAP 9 MEQ/L (2-14); CHLORIDE 103 MEQ/L (99-109); GFR ESTIMATE (CALCULATED) > 59 mL/min/ (58.99-99999); GLUCOSE 131 mg/dL (70-99); MAGNESIUM 2.1 mg/dl (1.3-2.7); SAMPLE HEMOLYSIS CHECK 1; SAMPLE ICTERIC CHECK 0; SAMPLE LIPEMIA CHECK 0; SODIUM 137 MEQ/L (136-147); UREA NITROGEN (BUN) 16 mg/dL (9-23)
[2017-09-08 07:28] VITALS: BP 122/75
[2017-09-08 11:42] VITALS: BP 122/69
[2017-09-08 16:59] VITALS: BP 124/70
[2017-09-09 00:48] VITALS: BP 110/61
[2017-09-09 06:25] LABS: ANION GAP 9 MEQ/L (2-14); CHLORIDE 103 MEQ/L (99-109); GFR ESTIMATE (CALCULATED) > 59 mL/min/ (58.99-99999); GLUCOSE 154 mg/dL (70-99); POTASSIUM 3.8 MEQ/L (3.7-5.4); SAMPLE HEMOLYSIS CHECK 0; SAMPLE ICTERIC CHECK 0; SAMPLE LIPEMIA CHECK 0; SODIUM 137 MEQ/L (136-147); UREA NITROGEN (BUN) 19 mg/dL (9-23)
[2017-09-09 07:21] VITALS: BP 114/64
[2017-09-09 16:18] VITALS: BP 120/68
[2017-09-09 20:05] VITALS: BP 115/64
[2017-09-09 23:43] VITALS: BP 123/68
[2017-09-10 04:31] VITALS: BP 113/68
[2017-09-10 06:24] LABS: ANION GAP 7 MEQ/L (2-14); CHLORIDE 106 MEQ/L (99-109); GFR ESTIMATE (CALCULATED) > 59 mL/min/ (58.99-99999); GLUCOSE 132 mg/dL (70-99); POTASSIUM 4.4 MEQ/L (3.7-5.4); SAMPLE HEMOLYSIS CHECK 0; SAMPLE ICTERIC CHECK 0; SAMPLE LIPEMIA CHECK 0; SODIUM 139 MEQ/L (136-147); UREA NITROGEN (BUN) 20 mg/dL (9-23)
[2017-09-10 07:52] VITALS: BP 120/68
[2017-09-10 15:10] LABS: ADD MIUA? YES; BILIRUBIN NEGATIVE; BLOOD MODERATE; COLOR YELLOW ((YELLOW)); GLUCOSE (STRIP) 150; KETONES NEGATIVE; LEUKOCYTES NEGATIVE; NITRITE NEGATIVE; PROTEIN (STRIP) 30; SPECIFIC GRAVITY 1.026 (1.000-1.030); UROBILINOGEN 0.2 MG/DL (0.2-1.0)
[2017-09-10 16:19] VITALS: BP 113/70
[2017-09-10 16:27] LABS: AMORPHOUS URATES CRYSTALS 1+; BACTERIA RARE /HPF; CASTS PRESENT /LPF; CRYSTALS PRESENT; EPITHELIAL CELLS NONE SEEN /HPF; HYALINE CASTS 0-5 /LPF; MUCUS NONE SEEN /LPF; UCUL ADDED? NO; WHITE BLOOD CELLS 0-5 /HPF (0-5)
[2017-09-11 06:17] LABS: EOSINOPHIL (%) 2.8 % (0-5); EOSINOPHIL COUNT 0.1 K/uL (0-0.3); IMMATURE GRANULOCYTE (%) 0.2 % (0.0-0.7); INSTRUMENT ABS NEUTROPHIL CT 2.6 K/uL; LYMPHOCYTE COUNT 1.3 K/uL (1.0-2.8); MCH 25.9 PG (29.0-34.0); MCV 80.9 FL (86-99); MONOCYTE (%) 5.6 % (3-12); MONOCYTE COUNT 0.2 K/uL (0-0.8); NEUTROPHIL (%) 60.8 % (45-76); NEUTROPHIL COUNT 2.6 K/uL (1.8-6.4); PLATELET COUNT 224 K/uL (156-360); RBC DIS.WIDTH-CV 14.9 % (11.8-14.6); RBC DIS.WIDTH-SD 42.5 % (39-53); RED BLOOD COUNT 3.71 M/uL (4.00-5.50); WHITE BLOOD COUNT 4.3 K/uL (4.1-10.2)
[2017-09-11 06:50] LABS: ALKALINE PHOSPHATASE 112 IU/L (3-129); ANION GAP 9 MEQ/L (2-14); CHLORIDE 104 MEQ/L (99-109); DIRECT BILIRUBIN 0.2 mg/dL (0.0-0.3); GFR ESTIMATE (CALCULATED) > 59 mL/min/ (58.99-99999); GLUCOSE 130 mg/dL (70-99); POTASSIUM 3.9 MEQ/L (3.7-5.4); PREALBUMIN 24.2 mg/dL (10-40); SAMPLE HEMOLYSIS CHECK 0; SAMPLE ICTERIC CHECK 0; SAMPLE LIPEMIA CHECK 0; SODIUM 139 MEQ/L (136-147); TRIGLYCERIDES 100 MG/DL (Normal: <150); UREA NITROGEN (BUN) 20 mg/dL (9-23)
[2017-09-11 06:53] LABS: TOTAL BILIRUBIN 0.6 MG/DL (0.0-1.0)
[2017-09-11 08:00] VITALS: BP 111/64
[2017-09-11 15:51] VITALS: BP 117/69
[2017-09-12 00:21] VITALS: BP 104/58
[2017-09-12 08:48] VITALS: BP 106/61
[2017-09-12 09:14] LABS: ANION GAP 8 MEQ/L (2-14); CHLORIDE 107 MEQ/L (99-109); GFR ESTIMATE (CALCULATED) > 59 mL/min/ (58.99-99999); GLUCOSE 142 mg/dL (70-99); POTASSIUM 4.1 MEQ/L (3.7-5.4); SAMPLE HEMOLYSIS CHECK 0; SAMPLE ICTERIC CHECK 0; SAMPLE LIPEMIA CHECK 0; SODIUM 140 MEQ/L (136-147); UREA NITROGEN (BUN) 22 mg/dL (9-23)
[2017-09-12 11:18] LABS: URINE UREA NITROGEN 11050 MG/24 HR
[2017-09-12 16:18] VITALS: BP 118/71
[2017-09-12 23:07] VITALS: BP 110/68
[2017-09-13 06:51] LABS: ANION GAP 7 MEQ/L (2-14); CHLORIDE 104 MEQ/L (99-109); GFR ESTIMATE (CALCULATED) > 59 mL/min/ (58.99-99999); GLUCOSE 131 mg/dL (70-99); MAGNESIUM 1.9 mg/dl (1.3-2.7); POTASSIUM 4.2 MEQ/L (3.7-5.4); SAMPLE HEMOLYSIS CHECK 0; SAMPLE ICTERIC CHECK 0; SAMPLE LIPEMIA CHECK 0; SODIUM 137 MEQ/L (136-147); UREA NITROGEN (BUN) 20 mg/dL (9-23)
[2017-09-13 08:52] VITALS: BP 125/67
[2017-09-13 16:48] VITALS: BP 118/69
[2017-09-13 21:50] LABS: TROP-I INTERPRETATION NEGATIVE; TROPONIN-I < 0.01 ng/mL (0.0-0.30)
[2017-09-13 22:45] LABS: INTER. NORMALIZED RATIO 1.1; PROTHROMBIN TIME 12.2 SEC (10.2-12.9)
[2017-09-13 22:48] LABS: PTT 32.6 SEC (25-37)
[2017-09-13 23:14] VITALS: BP 117/68
[2017-09-14 06:27] LABS: ANION GAP 8 MEQ/L (2-14); CHLORIDE 102 MEQ/L (99-109); GFR ESTIMATE (CALCULATED) > 59 mL/min/ (58.99-99999); GLUCOSE 118 mg/dL (70-99); MAGNESIUM 1.7 mg/dl (1.3-2.7); POTASSIUM 3.6 MEQ/L (3.7-5.4); SAMPLE HEMOLYSIS CHECK 0; SAMPLE ICTERIC CHECK 0; SAMPLE LIPEMIA CHECK 0; SODIUM 136 MEQ/L (136-147); UREA NITROGEN (BUN) 17 mg/dL (9-23)
[2017-09-14 07:48] VITALS: BP 106/60
[2017-09-14 17:20] VITALS: BP 116/60
[2017-09-14 23:23] VITALS: BP 115/70
[2017-09-15 07:01] LABS: ANION GAP 7 MEQ/L (2-14); CHLORIDE 102 MEQ/L (99-109); GFR ESTIMATE (CALCULATED) > 59 mL/min/ (58.99-99999); GLUCOSE 147 mg/dL (70-99); POTASSIUM 4.1 MEQ/L (3.7-5.4); SAMPLE HEMOLYSIS CHECK 0; SAMPLE ICTERIC CHECK 0; SAMPLE LIPEMIA CHECK 0; SODIUM 134 MEQ/L (136-147); UREA NITROGEN (BUN) 16 mg/dL (9-23)
[2017-09-15 08:08] VITALS: BP 111/70
[2017-09-15 16:44] VITALS: BP 119/67
[2017-09-16 00:01] VITALS: BP 126/69
[2017-09-16 07:45] VITALS: BP 119/67
[2017-09-16 08:46] LABS: ANION GAP 7 MEQ/L (2-14); CHLORIDE 99 MEQ/L (99-109); GFR ESTIMATE (CALCULATED) > 59 mL/min/ (58.99-99999); GLUCOSE 147 mg/dL (70-99); MAGNESIUM 2.1 mg/dl (1.3-2.7); POTASSIUM 4.5 MEQ/L (3.7-5.4); SAMPLE HEMOLYSIS CHECK 0; SAMPLE ICTERIC CHECK 0; SAMPLE LIPEMIA CHECK 0; SODIUM 134 MEQ/L (136-147); UREA NITROGEN (BUN) 16 mg/dL (9-23)
[2017-09-16 15:10] VITALS: BP 125/60
[2017-09-16 23:27] VITALS: BP 126/78
[2017-09-17 07:18] LABS: ANION GAP 11 MEQ/L (2-14); CHLORIDE 100 MEQ/L (99-109); GFR ESTIMATE (CALCULATED) > 59 mL/min/ (58.99-99999); GLUCOSE 141 mg/dL (70-99); POTASSIUM 3.6 MEQ/L (3.7-5.4); SAMPLE HEMOLYSIS CHECK 0; SAMPLE ICTERIC CHECK 0; SAMPLE LIPEMIA CHECK 0; SODIUM 132 MEQ/L (136-147); UREA NITROGEN (BUN) 15 mg/dL (9-23)
[2017-09-17 07:31] VITALS: BP 117/72
[2017-09-17 16:12] VITALS: BP 127/71
[2017-09-18 00:33] VITALS: BP 112/65
[2017-09-18 06:39] LABS: ALKALINE PHOSPHATASE 97 IU/L (3-129); ANION GAP 9 MEQ/L (2-14); CHLORIDE 104 MEQ/L (99-109); DIRECT BILIRUBIN 0.2 mg/dL (0.0-0.3); GFR ESTIMATE (CALCULATED) > 59 mL/min/ (58.99-99999); GLUCOSE 166 mg/dL (70-99); MAGNESIUM 2.1 mg/dl (1.3-2.7); POTASSIUM 3.8 MEQ/L (3.7-5.4); PREALBUMIN 20.5 mg/dL (10-40); SAMPLE HEMOLYSIS CHECK 0; SAMPLE ICTERIC CHECK 0; SAMPLE LIPEMIA CHECK 0; SODIUM 138 MEQ/L (136-147); TOTAL BILIRUBIN 0.4 MG/DL (0.0-1.0); TRIGLYCERIDES 52 MG/DL (Normal: <150); UREA NITROGEN (BUN) 17 mg/dL (9-23)
[2017-09-18 07:06] LABS: HEMATOCRIT 26.3 % (38.0-50.0); MCH 26.1 PG (29.0-34.0); MCHC 33.1 G/DL (30.0-36.0); MEAN PLAT.VOLUME 11.7 uM^3 (9.0-12.4); RBC DIS.WIDTH-CV 16.7 % (11.8-14.6); RBC DIS.WIDTH-SD 44.2 % (39-53); RED BLOOD COUNT 3.33 M/uL (4.00-5.50); WHITE BLOOD COUNT 2.6 K/uL (4.1-10.2)
[2017-09-18 07:15] LABS: PLATELET COUNT 309 K/uL (156-360)
[2017-09-18 07:38] VITALS: BP 128/65
[2017-09-18 08:17] LABS: EOSINOPHIL (%) 1.9 % (0-5); EOSINOPHIL COUNT 0.1 K/uL (0-0.3); IMMATURE GRANULOCYTE (%) 1.2 % (0.0-0.7); INSTRUMENT ABS NEUTROPHIL CT 1.6 K/uL; LYMPHOCYTE COUNT 0.7 K/uL (1.0-2.8); MONOCYTE (%) 5.4 % (3-12); MONOCYTE COUNT 0.1 K/uL (0-0.8); NEUTROPHIL (%) 61.9 % (45-76); NEUTROPHIL COUNT 1.6 K/uL (1.8-6.4)
[2017-09-18 10:47] VITALS: BP 126/71
[2017-09-18 16:34] VITALS: BP 127/69
[2017-09-18 20:03] VITALS: BP 116/71
[2017-09-19 00:21] VITALS: BP 113/70
[2017-09-19 04:19] VITALS: BP 116/67
[2017-09-19 06:53] LABS: ANION GAP 8 MEQ/L (2-14); CHLORIDE 104 MEQ/L (99-109); GFR ESTIMATE (CALCULATED) > 59 mL/min/ (58.99-99999); GLUCOSE 140 mg/dL (70-99); MAGNESIUM 2.1 mg/dl (1.3-2.7); POTASSIUM 3.7 MEQ/L (3.7-5.4); SAMPLE HEMOLYSIS CHECK 0; SAMPLE ICTERIC CHECK 0; SAMPLE LIPEMIA CHECK 0; SODIUM 139 MEQ/L (136-147); UREA NITROGEN (BUN) 20 mg/dL (9-23)
[2017-09-19 08:03] VITALS: BP 106/64
[2017-09-19 09:33] LABS: AMYLASE 63 IU/L (1-118); LIPASE 53 U/L (1.0-51.0)
[2017-09-19 15:44] VITALS: BP 113/67
[2017-09-20] VITALS: BP 120/72
[2017-09-20 05:40] VITALS: BP 136/89
[2017-09-20 05:40] LABS: HEMATOCRIT 28.4 % (38.0-50.0); MCH 25.9 PG (29.0-34.0); MCHC 32.4 G/DL (30.0-36.0); MEAN PLAT.VOLUME 11.7 uM^3 (9.0-12.4); PLATELET COUNT 310 K/uL (156-360); RBC DIS.WIDTH-CV 17.3 % (11.8-14.6); RBC DIS.WIDTH-SD 45.2 % (39-53); RED BLOOD COUNT 3.55 M/uL (4.00-5.50); WHITE BLOOD COUNT 2.5 K/uL (4.1-10.2)
[2017-09-20 06:19] LABS: ALKALINE PHOSPHATASE 114 IU/L (3-129); ANION GAP 11 MEQ/L (2-14); CHLORIDE 108 MEQ/L (99-109); GFR ESTIMATE (CALCULATED) > 59 mL/min/ (58.99-99999); GLUCOSE 176 mg/dL (70-99); MAGNESIUM 2.1 mg/dl (1.3-2.7); POTASSIUM 3.6 MEQ/L (3.7-5.4); SAMPLE HEMOLYSIS CHECK 0; SAMPLE ICTERIC CHECK 0; SAMPLE LIPEMIA CHECK 0; SODIUM 142 MEQ/L (136-147); TOTAL BILIRUBIN 0.6 MG/DL (0.0-1.0); UREA NITROGEN (BUN) 19 mg/dL (9-23)
[2017-09-20 06:26] LABS: ABS NEUTROPHIL COUNT 1.4; ANISOCYTOSIS 1+; ATYPICAL LYMPHOCYTE 6.4 %; BAND NEUTROPHILS 18.2 % (0-8.0); EOSINOPHIL ABS CT 0; GIANT PLATELETS 1+; HYPOCHROMASIA 2+; INSTRUMENT ABS NEUTROPHIL CT 1.5 K/uL; METAMYELOCYTES 0.9 %; MICROCYTOSIS 1+; OVALOCYTES 1+; PLAT.SUFFICIENCY ADEQUATE; POIKILOCYTOSIS 1+; POLYCHROMASIA 1+; TOXIC GRANULATION 1+
[2017-09-20 06:28] LABS: SEG.NEUTROPHILS 38.2 % (46.0-76.0)
[2017-09-20 07:59] VITALS: BP 116/62
[2017-09-20 15:12] VITALS: BP 147/75
[2017-09-20 23:55] VITALS: BP 117/70
[2017-09-21 03:58] LABS: ADD MIUA? YES; BILIRUBIN NEGATIVE; BLOOD LARGE; COLOR YELLOW ((YELLOW)); GLUCOSE (STRIP) NEGATIVE; KETONES NEGATIVE; LEUKOCYTES NEGATIVE; NITRITE NEGATIVE; PROTEIN (STRIP) 30; UROBILINOGEN 0.2 MG/DL (0.2-1.0)
[2017-09-21 04:04] LABS: BACTERIA RARE /HPF; EPITHELIAL CELLS NONE SEEN /HPF; HYALINE CASTS 0-5 /LPF; MUCUS 1+ /LPF; RED BLOOD CELLS TNTC /HPF (0-5); WHITE BLOOD CELLS 0-5 /HPF (0-5)
[2017-09-21 06:42] LABS: ANION GAP 8 MEQ/L (2-14); CHLORIDE 107 MEQ/L (99-109); GFR ESTIMATE (CALCULATED) > 59 mL/min/ (58.99-99999); GLUCOSE 139 mg/dL (70-99); POTASSIUM 3.8 MEQ/L (3.7-5.4); SAMPLE HEMOLYSIS CHECK 0; SAMPLE ICTERIC CHECK 0; SAMPLE LIPEMIA CHECK 0; SODIUM 142 MEQ/L (136-147); UREA NITROGEN (BUN) 16 mg/dL (9-23)
[2017-09-21 08:00] VITALS: BP 135/67
[2017-09-21] MEDS ORDERED: MORPHINE CON20 MG/M1 PO (14:30)
[2017-09-21] MEDS ORDERED: ATIVAN0.5 MG PO (14:30)
[2017-09-21] MEDS ORDERED: FENTANYL1 EAC5 TD (14:30)
[2017-09-21] MEDS ORDERED: BACLOFEN10 MG PO (15:16)
[2017-09-21] MEDS ORDERED: PHENADOZ25 MG PR (15:16)
[2017-09-21] MEDS ORDERED: ANASPAZ0.125 MG PO (15:16)
[2017-09-21] MEDS ORDERED: HALDOL10 MG/5 ML PO (15:16)
[2017-09-21 16:29] VITALS: BP 119/68
[2017-09-21 17:05] VITALS: BP 119/68
== END 2017-09-21 18:23 | disposition hospice, home (50) | DRG 375 ==
LOC: EME 18:33 → 5EAST 22:26 → ENRESERV 22:26 → EDOF 22:26 → ENRESERV 23:18 → 5EAST 08-30 00:55
PROVIDERS: Emergency Medicine; Hospitalist; Internal Medicine; Internal Medicine Hematology & Oncology; Physician Assistant; Student in an Organized Health Care Education/Training Program
PROC: 02H633Z Insertion of Infusion Device into Right Atrium, Percutaneous Approach (ICD-10-PCS; principal; 2017-08-31)
PROC: 3E0436Z Introduction of Nutritional Substance into Central Vein, Percutaneous Approach (ICD-10-PCS; 2017-08-31)
PROC: 3E04305 Introduction of Other Antineoplastic into Central Vein, Percutaneous Approach (ICD-10-PCS; 2017-09-01)
PROC: 0DH63UZ Insertion of Feeding Device into Stomach, Percutaneous Approach (ICD-10-PCS; 2017-09-20)
DX: C78.6 Secondary malignant neoplasm of retroperitoneum and peritoneum (principal); K56.690 Other partial intestinal obstruction; E44.1 Mild protein-calorie malnutrition; R64 Cachexia; K59.03 Drug induced constipation; T40.2X5A Adverse effect of other opioids, initial encounter; G89.3 Neoplasm related pain (acute) (chronic); T45.1X5A Adverse effect of antineoplastic and immunosuppressive drugs, initial encounter; D63.8 Anemia in other chronic diseases classified elsewhere; D72.819 Decreased white blood cell count, unspecified; E86.1 Hypovolemia; K20.9 Esophagitis, unspecified; K22.9 Disease of esophagus, unspecified; K29.70 Gastritis, unspecified, without bleeding; K76.0 Fatty (change of) liver, not elsewhere classified; R11.2 Nausea with vomiting, unspecified; R91.8 Other nonspecific abnormal finding of lung field; I87.8 Other specified disorders of veins; R06.6 Hiccough; R07.0 Pain in throat; R40.0 Somnolence; Z85.038 Personal history of other malignant neoplasm of large intestine; Z68.1 Body mass index [BMI] 19.9 or less, adult
CPT/HCPCS: 71010; 71275; 74000; 74020; 74176; 74177; 80048; 80048 91; 80053; 80076; 81003; 81050; 82150; 82248; 82330; 83605; 83690; 83735; 84100; 84134; 84478; 84484; 84540; 84630 90; 85025; 85027; 85379; 85610; 85730; 87040; 93005; 93970; 97530 GO; 97530 GP; 99281; 99285; C1752; C1894; C9113; J0461; J0610; J0640; J0690; J0780; J1100; J1170; J1200; J1364; J1626; J1630; J1644; J1885; J2060; J2250; J2270; J2405; J2765; J3010; J3230; J3480; J7030; J7040; J7050; J7120; J9190; J9206; Q0161; S0020; S0028; S0074